=== PATIENT | female | born 1970 | race Two or more races ===

== ENCOUNTER 2018-07-23 00:39 | Emergency (ER) | payer OTHER ==
[~2018-07-23] VITALS: Ht 165.1 cm; Wt 61.2 kg
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
--- NOTE | 2018-07-23 00:51 | NUR ---
WOUND CARE IN PROGRESS AT THE BEDSIDE. FLAVIO WRAY IS IRRIGATING THE LAC.
--- NOTE | 2018-07-23 01:00 | NUR ---
DR EDGE IS AT THE BEDSIDE.
[2018-07-23] MEDS: LIDOCAINE 1%-EPI 1:100,000 20 ML VIAL TP ONE (01:30)
[2018-07-23] MEDS: TDAP [DIPH/PERTUSSIS/TET] 0.5 ML VIAL IM ONE (01:30)
[2018-07-23] MEDS ORDERED: TDAP [DIPH/PERTUSSIS/TET] 0.5 ML VIAL IM ONE (01:31)
[2018-07-23] MEDS ORDERED: LIDOCAINE 1%-EPI 1:100,000 20 ML VIAL ONE (01:59)
--- NOTE | 2018-07-23 02:01 | NUR ---
PT RETURNED FROM CT.
--- NOTE | 2018-07-23 02:05 | NUR ---
SUTURE SET UP IS AT THE BEDSIDE.
--- NOTE | 2018-07-23 02:19 | NUR ---
DR EDGE IS AT THE BEDSIDE SUTURING.
--- NOTE | 2018-07-23 02:27 | NUR ---
REPORT GIVEN TO FERMIN OROZCO/RAJWINDER FOR BRIGITTE.
--- NOTE | 2018-07-23 02:27 | NUR ---
REPORT GIVEN TO FERMIN OROZCO/RAJWINDER FOR BRIGITTE.
[2018-07-23] MEDS ORDERED: ACETAMINOPHEN ES 500 MG TABLET ONE (03:50)
[2018-07-23] MEDS: ACETAMINOPHEN ES 500 MG TABLET PO ONE (03:59)
--- NOTE | 2018-07-23 05:06 | NUR ---
PT OK TO DISCHARGE PER DR EDGE. Patient discharged to home in stable condition. Written and verbal after care instructions given. Patient verbalizes understanding of instruction.Patient is awake and alert to self, day, and place. PT ambulatory with a steady gait
[2018-07-23 05:07] VITALS: BP 125/87
== END 2018-07-23 05:07 | disposition home or self-care (01) ==
LOC: ER 00:42
DX: F10.129 Alcohol abuse with intoxication, unspecified (principal); S01.81XA Laceration without foreign body of other part of head, initial encounter; V48.4XXA Person boarding or alighting a car injured in noncollision transport accident, initial encounter; Y93.89 Activity, other specified; Y92.89 Other specified places as the place of occurrence of the external cause; Y99.8 Other external cause status; Y90.8 Blood alcohol level of 240 mg/100 ml or more
CPT/HCPCS: 12014; 36415; 70450; 70486; 72125; 80307; 90471; 90715; 99284; J3490; G0480

== ENCOUNTER 2018-07-29 12:19 | Emergency (ER) | payer OTHER ==
[~2018-07-29] VITALS: Ht 165.1 cm; Wt 60.8 kg
[2018-07-29 12:26] VITALS: BP 105/68
--- NOTE | 2018-07-29 12:38 | NUR ---
SUTURE REMOVED BY JAY VALDEZ
--- NOTE | 2018-07-29 12:50 | NUR ---
Patient discharged to home in stable condition. Written and verbal after care instructions given. Patient verbalizes understanding of instruction.
== END 2018-07-29 12:51 | disposition home or self-care (01) ==
LOC: ER 12:19
DX: S01.112D Laceration without foreign body of left eyelid and periocular area, subsequent encounter (principal); X58.XXXD Exposure to other specified factors, subsequent encounter
CPT/HCPCS: 99281; A6402; Z7502

== ENCOUNTER 2019-01-09 10:14 | Emergency (ER) | payer OTHER ==
[~2019-01-09] VITALS: Ht 165.1 cm; Wt 59.0 kg
[2019-01-09] MEDS ORDERED: METOCLOPRAMIDE HCL 10 MG/2 ML VIAL IV ONE (11:00)
[2019-01-09] MEDS ORDERED: KETOROLAC TROMETHAMINE INJ 30 MG/ML VIAL IM ONE (11:00)
[2019-01-09 11:09] LABS: BASOPHILS # (AUTO) 0.1 /CMM (0.0-0.2); BASOPHILS % (AUTO) 1.5 % (0.0-2.0); HEMATOCRIT 40 % (33-45); HEMOGLOBIN 13.2 g/dL (11.5-14.8); LYMPHOCYTES # (AUTO) 1.2 /CMM (0.8-4.8); LYMPHOCYTES % (AUTO) 33.1 % (20.0-44.0); MEAN CORPUSCULAR HGB CONC 33 g/dl (31.0-36.0); MEAN CORPUSCULAR VOLUME 106 fL (82-100); MONOCYTES # (AUTO) 0.5 /CMM (0.1-1.30); MONOCYTES % (AUTO) 13.8 % (2.0-12.0); NEUTROPHILS # (AUTO) 1.8 /CMM (1.8-8.9); NEUTROPHILS % (AUTO) 49.6 % (43.0-81.0); PLATELET COUNT (AUTO) 293 /CMM (150-450); RED BLOOD CELL COUNT(AUTO) 3.73 MIL/uL (4.0-5.2); WHITE BLOOD COUNT (AUTO) 3.6 K/uL (4.3-11.0)
--- NOTE | 2019-01-09 11:15 | NUR ---
assumed care of pt, "headache, blurring of vision x 2 weeks, worst x 2 days" pt [id number], -sob, nad noted, vss ,pending md montiell
[2019-01-09 11:18] LABS: POTASSIUM 4.3 mmol/L (3.5-5.1)
[2019-01-09 11:27] LABS: ALBUMIN 3.7 g/dL (3.4-5.0); BILIRUBIN,DIRECT 0.1 mg/dL (0.0-0.2); BILIRUBIN,TOTAL 0.1 mg/dL (0.2-1.0); TOTAL PROTEIN, SERUM 7.2 g/dL (6.4-8.2)
[2019-01-09] MEDS ORDERED: KETOROLAC TROMETHAMINE INJ 30 MG/ML VIAL ONE (12:13)
[2019-01-09] MEDS ORDERED: METOCLOPRAMIDE HCL 10 MG/2 ML VIAL ONE (12:13)
[2019-01-09 13:14] LABS: APPEARANCE,URINE Clear (CLEAR); BILIRUBIN,URINE Negative (NEGATIVE); BLOOD, URINE Trace-lysed Ery/uL (NEGATIVE); COLOR,URINE Yellow (YELLOW); KETONES,URINE Negative (NEGATIVE); LEUKOCYTE ESTERASE ,URINE Trace (NEGATIVE); NITRITE, URINE Negative (NEGATIVE); PROTEIN,URINE Negative (NEGATIVE); UGLUCOSE Negative (NEGATIVE); UROBILINOGEN,URINE 0.2 EU/dL (0.2)
[2019-01-09 13:21] LABS: BACTERIA,URINE None seen /HPF (None Seen); SQUAMOUS EPITHELIAL CELL,UR Few /HPF (None Seen)
--- NOTE | 2019-01-09 14:31 | NUR ---
Patient discharged to home in stable condition. Written and verbal after care instructions given. Patient verbalizes understanding of instruction. IV removed. Catheter intact and site benign. Pressure and 4x4 applied to site. No bleeding noted.
[2019-01-09 14:51] VITALS: BP 121/75
== END 2019-01-09 14:31 | disposition home or self-care (01) ==
LOC: ER 10:18
DX: R51 Headache (principal); R19.7 Diarrhea, unspecified
CPT/HCPCS: 36415; 70450; 80048; 80076; 81001; 85025; 96372; 96374; 99284; A4216; J1885; J2765; 81000-TC